=== PATIENT | male | born 1985 | race African-American/Black ===

== ENCOUNTER 2019-09-19 18:38 | Emergency (ER) | payer OTHER ==
[~2019-09-19] VITALS: Ht 193 cm; Wt 113.4 kg
[2019-09-19 20:55] LABS: ABSOLUTE BASOPHILS 0.1 thou/uL (0.0-0.2); ABSOLUTE EOSINOPHILS 0.4 thou/uL (0.0-0.7); ABSOLUTE LYMPHOCYTES 3.5 thou/uL (0.8-5.3); ABSOLUTE MONOCYTES 0.4 thou/uL (0.0-1.2); ABSOLUTE NEUTROPHILS 3.6 thou/uL (1.6-8.1); BASOPHILS 1.2 %; EOSINOPHILS 4.4 %; HEMATOCRIT 46.6 % (42.0-52.0); HEMOGLOBIN 16.2 gm/dL (14.0-18.0); LYMPHOCYTES 43.6 %; MCH 31.2 pg (26.0-34.0); MCHC 34.7 g/dL (28.0-37.0); MCV 90.1 fL (80.0-100.0); MONOCYTES 5.4 %; MPV 9.5 fl. (7.2-11.1); NUCLEATED RBCS 0 /100WBC; PLATELET COUNT* 223 thou/uL (150-400); POLYS 45.4 %; RBC 5.17 mil/uL (4.50-6.00); RDW-CV 13.1 % (10.5-14.5)
[2019-09-19 21:20] LABS: CALCIUM 9.2 mg/dL (8.5-10.1); CREATININE 1.5 mg/dL (0.6-1.3); POTASSIUM 4.1 mmol/L (3.5-5.1)
[2019-09-19 21:24] LABS: ALBUMIN 4.2 g/dL (3.4-5.0); TOTAL BILIRUBIN 0.5 mg/dL (<0.1-1.0); TOTAL PROTEIN 7.8 g/dL (6.4-8.2)
[2019-09-19 21:59] VITALS: BP 136/98
--- NOTE | 2019-09-21 14:06 | EKG ---
[place] [address] ELECTROCARDIOGRAM REPORT Name: CLAUDIA MORTENSEN Room: [facility]#: [id number] Admission: 09/19/19 Attend Phys: Discharge: 09/19/19 Date of : 83 Date of Service: 09/19/19 184 Report #: [id number] THIS REPORT FOR: //name// [facility] ED Test Date: 2019-09-19 Test Time: 18:41:02 Pat Name: CLAUDIA MORTENSEN Department: Room: Gender: Mixing Place Supervisor: : 1985 Requested By: Katie Carlson Order Number: [id number] Dea MD: Moises Watters Measurements Intervals [place] Rate: 76 P: 51 IN: 166 QRS: -1 QRSD: 86 T: 22 QT: 376 QTc: 423 Interpretive Statements Sinus rhythm No previous ECG available for comparison Electronically Signed On 09-21-2019 14:05:08 CDT by Moises Watters [email or web address] <ELECTRONICALLY SIGNED> By: Moises Watters MD, [facility] 09/21/19 1405 184 1841 Moises Watters MD, FACC /EPI
== END 2019-09-19 22:01 | disposition home or self-care (01) ==
LOC: M.ERS 18:38
PROVIDERS: Physician Assistant
DX: M94.0 Chondrocostal junction syndrome [Tietze] (principal); I10 Essential (primary) hypertension